=== PATIENT | female | born 1995 | race Caucasian/White ===

== ENCOUNTER 2019-05-02 22:34 | Emergency (ER) | payer SELFPAY | END 2019-05-02 23:22 | LOC: ER 22:34 | DX: Z02.89 Encounter for other administrative examinations (principal); V49.49XA Driver injured in collision with other motor vehicles in traffic accident, initial encounter; Y93.89 Activity, other specified; Y92.410 Unspecified street and highway as the place of occurrence of the external cause; Y99.8 Other external cause status ==